=== PATIENT | female | born 1990 | race Caucasian/White ===

== ENCOUNTER 2020-07-05 10:53 | Inpatient (IN) | payer MEDICAID, SELFPAY ==
[2020-07-05] VITALS (9 sets, daily range): BP systolic 105–128; BP diastolic 67–89; PULSE 60–88; RESP 16–18; TEMP 36.5–37.1; O2SAT 96–100; BMI 19.2; BMI 19.1
--- NOTE | 2020-07-05 11:02 | ED.DCSUM_ITS ---
- ER Visit Summary Date of Service: 07/05/20 Chief Complaint: Requesting detox History of Present Illness: The patient is a 30 F presenting requesting detox from fentanyl. She states she has used fentanyl for the past 4 years. She uses approximately 2 g/day. She snorts fentanyl, she does not inject. She uses alcohol approximately 3 shots of whiskey per day. She has never been in alcohol withdrawal. She denies other drug use. She denies fever. Denies other complaints. Physical Examination: Vitals are stable. Patient is afebrile. Alert no acute distress. HEENT exam is unremarkable. Neck is supple. Lungs are clear and equal bilaterally. Heart is regular rate and rhythm. Abdomen is soft nontender nondistended. Extremities are unremarkable. Skin is warm and dry. No focal neurologic deficit. Remainder of exam is unremarkable. Emergency Department Course and Treatment: hCG negative. Chemistries unremarkable. Alcohol negative. Tox positive for methamphetamine and cannabinoids. Patient now admits to methamphetamine use 2 weeks ago. She also states she used cocaine 1 week ago. Will discuss with the hospitalist for admission. Disposition: Admission Impression: Opiate dependence This note was generated with [employer] dictation software. It may contain incorrect words, spelling, and punctuation that were not noted in review of the chart prior to signing ED Disposition - Plan for ED Patient: Referrals: Dileep ELMORE [Other]
[2020-07-05 11:35] LABS: Amphetamine Urine VISTA NEGATIVE (<1000 ng/mL); Barbiturate Urine VISTA NEGATIVE (< 200 ng/mL); Benzodiazepine Urine VISTA NEGATIVE (< 200 ng/mL); Cocaine Urine VISTA NEGATIVE (< 300 ng/mL); Ecstacy Urine VISTA POSITIVE (< 500 ng/mL); Methadone Urine VISTA NEGATIVE (< 300 ng/mL); PCP Urine VISTA NEGATIVE (< 25 ng/mL); THC Urine VISTA POSITIVE (< 50 ng/mL); Vista UDS pH Range 5
[2020-07-05 11:41] LABS: Internal QC Validated? YES +Cl - CLEAR BKGD; Pregnancy, Serum, hCG Quali. NEGATIVE Negative
[2020-07-05 11:47] LABS: AST(SGOT) 15 U/L (15-37); Alanine Aminotransfer ALT/SGPT 15 U/L (13-56); Albumin, Serum 3.7 g/dL (3.2-5.0); Alkaline Phosphatase 68 U/L (45-117); Anion Gap 3 (5-15); BUN 8 mg/dL (7-18); BUN/Creat Ratio 11.3 RATIO (10-20); Calcium,Total 9.1 mg/dL (8.5-10.1); Chloride 105 mmol/L (98-107); Creatinine, Serum 0.71 mg/dL (0.55-1.02); EST Glomerular Filtration Rate 102 mL/min (>60); Est Glom Filt Rate - Afr Amer 123 mL/min (>60); Estimated Creatinine Clearance 92.07 ml/min; Globulin 3.6 g/dL (2.2-4.2); Glucose 90 mg/dL (74-106); Protein, Total 7.3 g/dL (6.4-8.2); Sodium Level 140 mmol/L (136-145)
[2020-07-05 11:49] LABS: Alcohol, Blood (Medical)-Serum < 3.0 mg/dL
--- NOTE | 2020-07-05 12:12 | PCM.HP.STD ---
Problem List (1) Acute opioid withdrawal Status: Acute (2) Polysubstance dependence including opioid drug with daily use Status: Acute (3) Alcohol use disorder Status: Acute (4) Chronic hepatitis Status: Chronic History of Present Illness Date of Admission: 07/05/20 Chief Complaint: Acute opioid withdrawal The patient is a 30 year old F with past medical history of seizure disorder, chronic hepatitis C, polysubstance use, who comes in requesting for medical stabilization. Patient uses about 2 g of fentanyl every day. Last used fentanyl 10 PM the day before admission. She drinks 3 shots to 2 pints of hard liquor every day. She last drank yesterday afternoon. She comes in requesting for medical stabilization. She has been too many detox programs. She has mild aches but no much of any symptoms. Vitals show temperature of 7.8F, heart rate 85, blood pressure 128/89, respiration rate 18, SPO2 100% on room air. BMP of is unremarkable. Urine tox shows positive for cannabinoids, and methamphetamines. Past Medical History Past Medical History (Chronic Problems): Chronic Problems Chronic hepatitis (Chronic) Allergies No Known Allergies Allergy (Verified 07/05/20 10:56) Home Medications: Ambulatory Orders Medication Instructions Recorded Levetiracetam [Keppra] 1,500 mg PO BID 07/05/20 Surgical History: no surgical history Psychiatric History: No pertinent psych hx CART PUSHER History: No pertinent CART PUSHER history Lives: Friends Smoking Status: Current every day smoker Tobacco Use: Cigarettes Alcohol: Heavy Drugs: Cocaine, Marijuana, - - fentanyl Review of Systems Constitutional: Reports: Fatigue. Denies: Anorexia, Chills, Fever, Night Sweats, Malaise, Weakness, Weight Change Eyes: Denies: Blurred vision, Cataracts, Conjunctivae Inflammation, Pain, Redness, Vision Change HEENT: Denies: Difficulty Hearing, Difficulty Swallowing, Head Aches, Hearing Changes, Sinus Congestion, Sinus Drainage, Sore Throat Cardiovascular: Denies: Chest Pain, Orthopnea, Palpitations, Paroxysmal Noc. Dyspnea Respiratory: Denies: Cough, Hemoptysis, Shortness of breath at rest, Shortness of breath upon exertion, Sputum production Gastrointestinal: Denies: Abdominal Pain, Nausea, Vomiting Genitourinary: Denies: Dysuria Musculoskeletal: Denies: Joint Pain, Joint stiffness, Joint swelling, Joint Tenderness Skin: Denies: Rash, Wounds Neurological: Denies: Difficulty swallowing, Focal weakness, Numbness, Tingling Psychiatric: Denies: Anxiety, Depression, Homicidal Ideations, Suicidal Ideations Hematologic/ Lymphatic: Denies: Easy Bruising, Easy Bleeding VTE Information - Inpt Only VTE Present on Admission: No VTE Pharm Prophylaxis ordered?: Yes Patient Problems: Active and Suspected Problems Acute opioid withdrawal (Acute) Polysubstance dependence including opioid drug with daily use (Acute) Alcohol use disorder (Acute) - Physical Exam Vitals/I&O's: Vital Signs Temp Pulse Resp BP Pulse Ox 97.8 F 85 18 128/89 H 100 07/05/20 10:54 07/05/20 10:54 07/05/20 10:54 07/05/20 10:54 07/05/20 10:54 Oxygen Delivery Method Room Air Weight: 50.802 kg Body Mass Index (BMI) 19.2 General: Alert, Oriented x3, Cooperative, No apparent distress HEENT: Atraumatic, PERRLA, EOMI, Normocephalic Oral: Moist Mucosa Neck: Supple Lungs: Clear to auscultation, Normal air movement Cardiovascular: Regular rate, Regular Rhythm, Normal S2, No murmurs Abdomen: Bowel Sounds Present, Soft, Non Tender, Non-Distended, No Hepato-splenomegaly Extremities: No edema Skin: No rashes Musculoskeletal: No Tenderness to Palpation of Joints or Extremities Lymphatic: No Cervical, Supraclavicular, or Inguinal Adenopathy Neurological: Cranial nerves II-XII grossly intact, Neuro grossly intact Psych/Mental Status: Normal Affect, Appropriate Laboratory Results 07/05/20 11:10: Urine Opiates Screen NEGATIVE, Urine Methadone Screen NEGATIVE, Ur Barbiturates Screen NEGATIVE, Ur Phencyclidine Scrn NEGATIVE, Ur Amphetamines Screen NEGATIVE, U Methamphetamin-MDMA POSITIVE H, U Benzodiazepines Scrn NEGATIVE, Urine Cocaine Screen NEGATIVE, U Cannabinoids Screen POSITIVE H, Ur Drug Screen Comment 07/05/20 11:22: Sodium 140, Potassium 4.0, Chloride 105, Carbon Dioxide 32.0, Anion Gap 3 L, BUN 8, Creatinine 0.71, Estim Creat Clear Calc 92.07, Est GFR (MDRD) Af Amer 123, Est GFR (MDRD) Non-Af 102, BUN/Creatinine Ratio 11.3, Glucose 90, Calcium 9.1, Total Bilirubin 0.10 L, AST 15, ALT 15, Alkaline Phosphatase 68, Total Protein 7.3, Albumin 3.7, Globulin 3.6, Albumin/Globulin Ratio 1.0 07/05/20 11:22: Ethyl Alcohol < 3.0 07/05/20 11:22: Serum , Qual NEGATIVE Assessment/Plan All Active Problems Acute opioid withdrawal (Acute) Polysubstance dependence including opioid drug with daily use (Acute) Alcohol use disorder (Acute) 1. Acute opioid withdrawal in a patient with chronic fentanyl use Continue buprenorphine protocol 2. Chronic alcohol use disorder, would anticipate alcohol withdrawal since patient drinks heavily Will put on withdrawal protocol Monitor for alcohol withdrawal seizures and also excessive sedation 3. Polysubstance use, advised to quit 4. Nicotine dependence, on replacement 5. Seizure disorder, continue on Keppra, seizure precautions 6. DVT prophylaxis-early mobilization Inpatient E&M: 19741 Init Hosp L3
--- NOTE | 2020-07-05 12:14 | NURSING ---
MED SURG OPIATE DEPENDENCE PAINTSIL
[2020-07-05] MEDS: Phenobarbital 32.4 MG Tablet PO ×3 (14:36→22:38)
[2020-07-05] MEDS: levETIRAcetam 750 MG Tablet 1500 MG PO (22:38)
[2020-07-06 01:37] VITALS: BP 110/71; PULSE 56; RESP 16; TEMP 36.5; O2SAT 96
[2020-07-06] MEDS: Phenobarbital 32.4 MG Tablet PO ×6 (02:55→22:29)
[2020-07-06 06:00] VITALS: BP 114/80; PULSE 65; RESP 16; TEMP 36.9; O2SAT 97
[2020-07-06] MEDS: 0.9% Saline Lock 10 ML Syringe IV (06:30)
--- NOTE | 2020-07-06 07:18 | PCM.PN.HOSP ---
Patient Problems: Active and Suspected Problems Acute opioid withdrawal (Acute) Polysubstance dependence including opioid drug with daily use (Acute) Alcohol use disorder (Acute) Reason for Visit: Follow-up on acute alcohol and opioid withdrawal Subjective: Patient was seen and examined. She denied any new complains. No acute events. No seizures seen Objective: Physical exam: General: Alert, Oriented x3, Cooperative, No apparent distress HEENT: Atraumatic, PERRLA, EOMI, Normocephalic Oral: Moist Mucosa Neck: Supple Lungs: Clear to auscultation, Normal air movement Cardiovascular: Regular rate, Regular Rhythm, Normal S2, No murmurs Abdomen: Bowel Sounds Present, Soft, Non Tender, Non-Distended, No Hepato-splenomegaly Extremities: No edema Skin: No rashes Musculoskeletal: No Tenderness to Palpation of Joints or Extremities Lymphatic: No Cervical, Supraclavicular, or Inguinal Adenopathy Neurological: Cranial nerves II-XII grossly intact, Neuro grossly intact Psych/Mental Status: Normal Affect, Appropriate Vitals/I&O's: Vital Signs Temp Pulse Resp BP Pulse Ox 98.5 F 65 16 114/80 97 07/06/20 06:00 07/06/20 06:00 07/06/20 06:00 07/06/20 06:00 07/06/20 06:00 Oxygen Delivery Method Room Air Weight: 50.802 kg Body Mass Index (BMI) 19.1 Intake and Output for Last 24 Hours 07/04/20 07/05/20 07/06/20 23:59 23:59 23:59 Intake Total 150 / 150 200 / 200 Balance 150 / 150 200 / 200 Laboratory Results 07/05/20 11:10: Urine Opiates Screen NEGATIVE, Urine Methadone Screen NEGATIVE, Ur Barbiturates Screen NEGATIVE, Ur Phencyclidine Scrn NEGATIVE, Ur Amphetamines Screen NEGATIVE, U Methamphetamin-MDMA POSITIVE H, U Benzodiazepines Scrn NEGATIVE, Urine Cocaine Screen NEGATIVE, U Cannabinoids Screen POSITIVE H, Ur Drug Screen Comment 07/05/20 11:22: Sodium 140, Potassium 4.0, Chloride 105, Carbon Dioxide 32.0, Anion Gap 3 L, BUN 8, Creatinine 0.71, Estim Creat Clear Calc 92.07, Est GFR (MDRD) Af Amer 123, Est GFR (MDRD) Non-Af 102, BUN/Creatinine Ratio 11.3, Glucose 90, Calcium 9.1, Total Bilirubin 0.10 L, AST 15, ALT 15, Alkaline Phosphatase 68, Total Protein 7.3, Albumin 3.7, Globulin 3.6, Albumin/Globulin Ratio 1.0 07/05/20 11:22: Ethyl Alcohol < 3.0 07/05/20 11:22: Serum , Qual NEGATIVE Current Medications Buprenorphine HCl (Buprenorphine Hcl) 0 mg SL Q8H [facility]; Taper Stop: 07/08/20 12:14 Clonidine (Catapres) 0.1 mg PO Q8H PRN PRN PRN Reason: RESTLESSNESS Dicyclomine HCl (Bentyl) 20 mg PO Q6H PRN PRN PRN Reason: Abdominal Discomfort Folic Acid (Folic Acid) 1 mg PO DAILY@0800 [facility] Gabapentin (Neurontin) 300 mg PO Q8H PRN PRN PRN Reason: moderate to severe anxiety Hydroxyzine Pamoate (Vistaril Pamoate Capsule) 50 mg PO Q6H PRN PRN PRN Reason: mild anxiety Levetiracetam (Keppra Tablet) 1,500 mg PO BID [facility] Last Admin: 07/05/20 22:38 Dose: 1,500 mg Documented by: Loperamide HCl (Imodium) 2 mg PO Q4H PRN PRN PRN Reason: LOOSE STOOLS Methocarbamol (Methocarbamol) 1,500 mg PO Q6H PRN PRN PRN Reason: MUSCLE SPASM Nicotine (Nicoderm Cq (Pbkc)) 21 mg TRANSDERM. DAILY [facility] Nicotine Polacrilex (Rugby Nicotine (Pbkc)) 4 mg PO Q2H PRN PRN PRN Reason: Nicotine Craving Ondansetron HCl (Zofran) 8 mg PO Q8H PRN PRN PRN Reason: NAUSEA Phenobarbital (Phenobarbital) 97.2 mg PO Q4H [facility]; Taper Stop: 07/09/20 21:59 Last Admin: 07/06/20 06:29 Dose: 97.2 mg Documented by: Sodium Chloride () 10 - 40 ml IV UD PRN PRN Reason: SALINE FLUSH Last Admin: 07/06/20 06:30 Dose: 10 ml Documented by: Thiamine HCl (Vitamin B1) 100 mg PO DAILYCM [facility] Trazodone HCl (Desyrel) 100 mg PO QHS PRN PRN PRN Reason: INSOMNIA STROKE Vital Signs/Narrative: Vital Signs Temp Pulse Resp BP Pulse Ox 07/06/20 06:00 98.5 F 65 16 114/80 97 Medical Necessity - Tobacco Use Smoking Status: Heavy Smoker (>10/day) Tobacco Use: Cigarettes Assessment/Plan All Active Problems Acute opioid withdrawal (Acute) Polysubstance dependence including opioid drug with daily use (Acute) Alcohol use disorder (Acute) 1. Acute opioid withdrawal in a patient with chronic fentanyl use Continue buprenorphine protocol 2. Chronic alcohol use disorder, would anticipate alcohol withdrawal since patient drinks heavily Continue on withdrawal protocol Monitor for alcohol withdrawal seizures and also excessive sedation 3. Polysubstance use, advised to quit 4. Nicotine dependence, on replacement 5. Seizure disorder, continue on Keppra, seizure precautions 6. DVT prophylaxis-early mobilization Inpatient E&M: 46994 Subs Hosp L2
[2020-07-06 07:22] VITALS: BP 103/63; PULSE 71; RESP 16; TEMP 37; O2SAT 95
[2020-07-06] MEDS: Thiamine Hydrochloride 100 MG Tablet PO (07:31)
[2020-07-06] MEDS: Folic Acid 1 MG Tablet PO (07:31)
[2020-07-06] MEDS: levETIRAcetam 750 MG Tablet 1500 MG PO ×2 (10:33→22:28)
[2020-07-06 13:40] VITALS: BP 92/53; PULSE 73; RESP 16; TEMP 36.9; O2SAT 97
--- NOTE | 2020-07-06 14:13 | CHAPLAIN ---
Type of Pastoral Visit _x__ Initial Visit ___ Follow-up Visit ___ On-call Visit ___ General Patient Visit ___ Spiritual Assessment ___ Family Conference ___ Bereavement ___ Rapid Response ___ Code Blue ___ Other (describe below) Pastoral Care Referral From _x__ Patient ___ Family ___ Nurse ___ Physician ___ Career Guidance Counselor ___ Medical Collections ___ Other (describe below) Sacrament/Intervention ___ Active listening ___ Anointing ___ Yarsani ___ Bereavement ___ Communion ___ Yris exploration ___ ___ Life review ___ Prayer ___ Reconciliation ___ Sacrament of Sick _x__ Supportive presence ___ Wedding ___ Other (describe below) Pastoral Comments offer of support to patient while RN is in the room; pt is welcoming but indicates she is tired and may not be talkative; pt states she has very little support system and I've tried recovery before, but hope it can work this time; offer of future support given
--- NOTE | 2020-07-06 14:19 | ADDICTION ---
This feature writer met with patient in her room to plan discharge. Patient stated that she is unsure if she wants follow up care post discharge from [facility]. She stated that she will wait until discharge to plan for discharge. This feature writer encouraged patient to consider Residential treatment upon discharge and provided education re:direct [facility]. Patient declined referral again. This feature writer will attempt to meet with patient tomorrow prior to her discharge.
[2020-07-06] MEDS: Gabapentin 300 MG Capsule PO (18:39)
[2020-07-06] MEDS: Dicyclomine 10 MG Capsule 20 MG PO (18:39)
[2020-07-06 22:19] VITALS: BP 115/77; PULSE 60; RESP 16; TEMP 36.8; O2SAT 98
[2020-07-06] MEDS: Buprenorphine HCl 2 MG TAB.SUBL SL (22:29)
[2020-07-07] MEDS: Phenobarbital 32.4 MG Tablet PO ×6 (02:19→22:01)
[2020-07-07] MEDS: Gabapentin 300 MG Capsule PO ×3 (02:25→22:05)
[2020-07-07] MEDS: Dicyclomine 10 MG Capsule 20 MG PO ×2 (02:25→09:03)
[2020-07-07] MEDS: cloNIDine HCl 0.1 MG Tablet PO ×2 (02:25→11:40)
[2020-07-07] MEDS: Methocarbamol 750 MG Tablet 1500 MG PO ×3 (02:25→18:05)
[2020-07-07 02:30] VITALS: BP 114/76; PULSE 72; RESP 17; TEMP 37.1; O2SAT 97
[2020-07-07] MEDS: hydrOXYzine PAM 25 MG Capsule 50 MG PO ×3 (05:37→18:05)
[2020-07-07] MEDS: Buprenorphine HCl 2 MG TAB.SUBL SL ×3 (05:37→22:43)
[2020-07-07 08:50] VITALS: BP 100/44; PULSE 86; RESP 16; TEMP 36.5; O2SAT 98
[2020-07-07] MEDS: Ondansetron 8 MG Tablet PO (09:02)
[2020-07-07] MEDS: Folic Acid 1 MG Tablet PO (09:02)
[2020-07-07] MEDS: Thiamine Hydrochloride 100 MG Tablet PO (09:02)
[2020-07-07] MEDS: levETIRAcetam 750 MG Tablet 1500 MG PO ×2 (09:02→22:01)
--- NOTE | 2020-07-07 09:27 | ADDICTION ---
This technical report writer met with patient in her room to discuss discharge planning. Patient was alert and orietned x4 and presented with agitated mood and congruent affect. She stated that she is not feeling well and questioned why am I even here. Patient stated that she wants to leave medical withdrawal management. This technical report writer encouraged patient to complete the program. This technical report writer offered coordination of care for discharge, patient declined. Patient states that she wants to get a hold of Tommy to see if she can live with him and do outpatient services in [place]. This technical report writer offered to provide a list of treatment agencies in [place], patient declined. This technical report writer informed patient's nurse that patient wants to use telephone to call Tommy to arrange for housing and transport. Nurse stated that she will be permitted to use the phone on Sunday when she plans to discharge. This technical report writer will follow up with patient at next visit.
[2020-07-07] MEDS: Ibuprofen 600 MG Tablet PO ×2 (11:39→22:15)
--- NOTE | 2020-07-07 13:20 | PCM.PN.HOSP ---
Patient Problems: Active and Suspected Problems Acute opioid withdrawal (Acute) Polysubstance dependence including opioid drug with daily use (Acute) Alcohol use disorder (Acute) Reason for Visit: Acute alcohol and opioid withdrawal Objective: Patient stated she had a seizure before admission but not during hospital stay. She drinks 2 pints of whiskey every day along with opioids. Physical exam General: Confused, disoriented, lethargic. HEENT: Atraumatic, PERRLA, EOMI, Normocephalic Oral: No Gingival or Mucosal Lesions/ Ulcerations Neck: Supple, No JVD, Negative Carotid Bruits Lungs: Air entry diminished in bilateral lung bases. No crepitation/rhonchi Cardiovascular: Regular rate, Regular Rhythm, Normal S1, Normal S2, No murmurs Abdomen: Bowel Sounds Present, Soft, Non Tender, Non-Distended : No renal angle tenderness. No suprapubic tenderness. Extremities: No edema, Capillary Refill Less than 3 Seconds. Mild tremors of hands. Skin: No rashes, No breakdown Musculoskeletal: No Tenderness to Palpation of Joints or Extremities Neurological: Cranial nerves II-XII grossly intact, Deep Tendon Reflexes 2+/4 and Symmetrical, Neuro grossly intact Psych/Mental Status: Normal Affect, Appropriate. Vitals/I&O's: Vital Signs Temp Pulse Resp BP Pulse Ox 97.7 F L 86 16 100/44 L 98 07/07/20 08:50 07/07/20 08:50 07/07/20 08:50 07/07/20 08:50 07/07/20 08:50 Oxygen Delivery Method Room Air Weight: 112 lb Body Mass Index (BMI) 19.1 Intake and Output for Last 24 Hours 07/05/20 07/06/20 07/07/20 23:59 23:59 23:59 Intake Total 150 / 150 200 / 500 800 / 800 Balance 150 / 150 200 / 500 800 / 800 Current Medications Acetaminophen (Tylenol) 500 mg PO Q4H PRN PRN PRN Reason: Temp > 100.4 F Al Hydroxide/Mg Hydroxide (Mylanta Ii) 30 ml PO Q6H PRN PRN PRN Reason: dyspesia Bisacodyl (Dulcolax) 10 mg RECTAL DAILY PRN PRN PRN Reason: Constipation Buprenorphine HCl (Buprenorphine Hcl) 4 mg SL Q8H [facility]; Taper Stop: 07/09/20 22:14 Last Admin: 07/07/20 05:37 Dose: 4 mg Documented by: Clonidine (Catapres) 0.1 mg PO Q8H PRN PRN PRN Reason: RESTLESSNESS Last Admin: 07/07/20 11:40 Dose: 0.1 mg Documented by: Dicyclomine HCl (Bentyl) 20 mg PO Q6H PRN PRN PRN Reason: Abdominal Discomfort Last Admin: 07/07/20 09:03 Dose: 20 mg Documented by: Folic Acid (Folic Acid) 1 mg PO DAILY@0800 [facility] Last Admin: 07/07/20 09:02 Dose: 1 mg Documented by: Gabapentin (Neurontin) 300 mg PO Q8H PRN PRN PRN Reason: moderate to severe anxiety Last Admin: 07/07/20 11:39 Dose: 300 mg Documented by: Hydroxyzine Pamoate (Vistaril Pamoate Capsule) 50 mg PO Q6H PRN PRN PRN Reason: mild anxiety Last Admin: 07/07/20 11:39 Dose: 50 mg Documented by: Ibuprofen (Motrin) 600 mg PO Q8H PRN PRN PRN Reason: Pain Score 1-10/10 Last Admin: 07/07/20 11:39 Dose: 600 mg Documented by: Levetiracetam (Keppra Tablet) 1,500 mg PO BID [facility] Last Admin: 07/07/20 09:02 Dose: 1,500 mg Documented by: Loperamide HCl (Imodium) 2 mg PO Q4H PRN PRN PRN Reason: LOOSE STOOLS Methocarbamol (Methocarbamol) 1,500 mg PO Q6H PRN PRN PRN Reason: MUSCLE SPASM Last Admin: 07/07/20 09:03 Dose: 1,500 mg Documented by: Nicotine (Nicoderm Cq (Pbkc)) 21 mg TRANSDERM. DAILY [facility] Last Admin: 07/07/20 08:54 Dose: Not Given Documented by: Nicotine Polacrilex (Rugby Nicotine (Pbkc)) 4 mg PO Q2H PRN PRN PRN Reason: Nicotine Craving Ondansetron HCl (Zofran) 8 mg PO Q8H PRN PRN PRN Reason: NAUSEA Last Admin: 07/07/20 09:02 Dose: 8 mg Documented by: Phenobarbital (Phenobarbital) 64.8 mg PO Q4H [facility]; Taper Stop: 07/09/20 21:59 Last Admin: 07/07/20 10:13 Dose: 64.8 mg Documented by: Senna (Senokot) 2 tablet PO QHS PRN PRN PRN Reason: Constipation Sodium Chloride () 10 - 40 ml IV UD PRN PRN Reason: SALINE FLUSH Last Admin: 07/06/20 06:30 Dose: 10 ml Documented by: Thiamine HCl (Vitamin B1) 100 mg PO DAILYCM [facility] Last Admin: 07/07/20 09:02 Dose: 100 mg Documented by: Trazodone HCl (Desyrel) 100 mg PO QHS PRN PRN PRN Reason: INSOMNIA Medical Necessity - Tobacco Use Smoking Status: Heavy Smoker (>10/day) Tobacco Use: Cigarettes Assessment/Plan All Active Problems Acute opioid withdrawal (Acute) Polysubstance dependence including opioid drug with daily use (Acute) Alcohol use disorder (Acute) 1. Acute opioid withdrawal with chronic fentanyl use, dependence and tolerance Continue buprenorphine protocol with other supportive medications. U tox positive of methamphetamine and cannabinoids. 2. Acute alcohol withdrawal with chronic alcohol use disorder, dependence and tolerance Continue on withdrawal protocol Monitor for alcohol withdrawal seizures and also excessive sedation 3. Polysubstance use, catalytic case operator consult and referral to 180. 4. Cigarette smoking and nicotine dependence: Nicotine dependence, on replacement 5. Seizure disorder, continue on Keppra, seizure precautions 6. DVT prophylaxis-early mobilization Inpatient E&M: 42526 [facility] Hosp L2
[2020-07-07 14:50] VITALS: BP 90/67; PULSE 76; RESP 16; TEMP 36.8; O2SAT 96
[2020-07-07 18:00] VITALS: BP 100/65; PULSE 67; RESP 16; TEMP 36.9; O2SAT 96
[2020-07-07 20:30] VITALS: BP 100/56; PULSE 70; RESP 16; TEMP 36.8; O2SAT 99
[2020-07-07] MEDS: traZODone 100 MG Tablet PO (22:05)
[2020-07-07 22:06] VITALS: BP 97/64; PULSE 70; RESP 18; TEMP 36.8; O2SAT 98
[2020-07-08] MEDS: hydrOXYzine PAM 25 MG Capsule 50 MG PO ×3 (00:26→16:32)
[2020-07-08 02:00] VITALS: BP 98/67; PULSE 75; RESP 16; TEMP 36.6; O2SAT 98
[2020-07-08] MEDS: Phenobarbital 32.4 MG Tablet PO ×4 (04:02→22:13)
[2020-07-08] MEDS: Methocarbamol 750 MG Tablet 1500 MG PO ×2 (06:01→20:26)
[2020-07-08] MEDS: Buprenorphine HCl 2 MG TAB.SUBL SL ×3 (06:01→22:14)
[2020-07-08 06:05] VITALS: BP 98/62; PULSE 72; RESP 16; TEMP 36.2; O2SAT 97
[2020-07-08 08:45] VITALS: BP 107/70; PULSE 84; RESP 16; TEMP 36.5; O2SAT 96
[2020-07-08] MEDS: cloNIDine HCl 0.1 MG Tablet PO ×2 (08:49→16:48)
[2020-07-08] MEDS: Gabapentin 300 MG Capsule PO ×2 (08:49→20:26)
[2020-07-08] MEDS: Ibuprofen 600 MG Tablet PO (08:49)
[2020-07-08] MEDS: Folic Acid 1 MG Tablet PO (08:50)
[2020-07-08] MEDS: Thiamine Hydrochloride 100 MG Tablet PO (08:51)
[2020-07-08] MEDS: levETIRAcetam 750 MG Tablet 1500 MG PO ×2 (08:51→22:14)
--- NOTE | 2020-07-08 11:20 | PN_ITS ---
Patient Problems: Active and Suspected Problems Acute opioid withdrawal (Acute) Polysubstance dependence including opioid drug with daily use (Acute) Alcohol use disorder (Acute) Reason for Visit: Acute opioid withdrawal symptoms Objective: Patient is awake, alert oriented x3. She still has restlessness and anxiety. Heart rate and blood pressure control. Physical exam General: Alert, Oriented x3, Cooperative HEENT: Atraumatic, PERRLA, EOMI, Normocephalic Oral: No Gingival or Mucosal Lesions/ Ulcerations Neck: Supple, No JVD, Negative Carotid Bruits Lungs: Air entry equal in bilateral lung bases. No crepitation/rhonchi Cardiovascular: Regular rate, Regular Rhythm, Normal S1, Normal S2, No murmurs Abdomen: Bowel Sounds Present, Soft, Non Tender, Non-Distended : No renal angle tenderness. No suprapubic tenderness. Extremities: No edema, Capillary Refill Less than 3 Seconds Skin: Needleless: On both arms and forearms. No breakdown Musculoskeletal: No Tenderness to Palpation of Joints or Extremities Neurological: Cranial nerves II-XII grossly intact, Deep Tendon Reflexes 2+/4 and Symmetrical, Neuro grossly intact Psych/Mental Status: Normal Affect, Appropriate. Vitals/I&O's: Vital Signs Temp Pulse Resp BP Pulse Ox 97.7 F L 84 16 107/70 96 07/08/20 08:45 07/08/20 08:45 07/08/20 08:45 07/08/20 08:45 07/08/20 08:45 Oxygen Delivery Method Room Air Weight: 112 lb Body Mass Index (BMI) 19.1 Intake and Output for Last 24 Hours 07/06/20 07/07/20 07/08/20 23:59 23:59 23:59 Intake Total 200 / 500 920 / 920 Balance 200 / 500 920 / 920 Current Medications Acetaminophen (Tylenol) 500 mg PO Q4H PRN PRN PRN Reason: Temp > 100.4 F Al Hydroxide/Mg Hydroxide (Mylanta Ii) 30 ml PO Q6H PRN PRN PRN Reason: dyspesia Bisacodyl (Dulcolax) 10 mg RECTAL DAILY PRN PRN PRN Reason: Constipation Buprenorphine HCl (Buprenorphine Hcl) 2 mg SL Q8H [facility]; Taper Stop: 07/09/20 22:14 Last Admin: 07/08/20 06:01 Dose: 2 mg Documented by: Clonidine (Catapres) 0.1 mg PO Q8H PRN PRN PRN Reason: RESTLESSNESS Last Admin: 07/08/20 08:49 Dose: 0.1 mg Documented by: Dicyclomine HCl (Bentyl) 20 mg PO Q6H PRN PRN PRN Reason: Abdominal Discomfort Last Admin: 07/07/20 09:03 Dose: 20 mg Documented by: Folic Acid (Folic Acid) 1 mg PO DAILY@0800 [facility] Last Admin: 07/08/20 08:50 Dose: 1 mg Documented by: Gabapentin (Neurontin) 300 mg PO Q8H PRN PRN PRN Reason: moderate to severe anxiety Last Admin: 07/08/20 08:49 Dose: 300 mg Documented by: Hydroxyzine Pamoate (Vistaril Pamoate Capsule) 50 mg PO Q6H PRN PRN PRN Reason: mild anxiety Last Admin: 07/08/20 08:49 Dose: 50 mg Documented by: Ibuprofen (Motrin) 600 mg PO Q8H PRN PRN PRN Reason: Pain Score 1-10/10 Last Admin: 07/08/20 08:49 Dose: 600 mg Documented by: Levetiracetam (Keppra Tablet) 1,500 mg PO BID [facility] Last Admin: 07/08/20 08:51 Dose: 1,500 mg Documented by: Loperamide HCl (Imodium) 2 mg PO Q4H PRN PRN PRN Reason: LOOSE STOOLS Methocarbamol (Methocarbamol) 1,500 mg PO Q6H PRN PRN PRN Reason: MUSCLE SPASM Last Admin: 07/08/20 06:01 Dose: 1,500 mg Documented by: Nicotine (Nicoderm Cq (kc)) 21 mg TRANSDERM. DAILY [facility] Last Admin: 07/08/20 08:53 Dose: 21 mg Documented by: Nicotine Polacrilex (Rugby Nicotine (Pbkc)) 4 mg PO Q2H PRN PRN PRN Reason: Nicotine Craving Ondansetron HCl (Zofran) 8 mg PO Q8H PRN PRN PRN Reason: NAUSEA Last Admin: 07/07/20 09:02 Dose: 8 mg Documented by: Phenobarbital (Phenobarbital) 64.8 mg PO Q6H [facility]; Taper Stop: 07/09/20 21:59 Last Admin: 07/08/20 10:17 Dose: 64.8 mg Documented by: Senna (Senokot) 2 tablet PO QHS PRN PRN PRN Reason: Constipation Sodium Chloride () 10 - 40 ml IV UD PRN PRN Reason: SALINE FLUSH Last Admin: 07/06/20 06:30 Dose: 10 ml Documented by: Thiamine HCl (Vitamin B1) 100 mg PO DAILYCM [facility] Last Admin: 07/08/20 08:51 Dose: 100 mg Documented by: Trazodone HCl (Desyrel) 100 mg PO QHS PRN PRN PRN Reason: INSOMNIA Last Admin: 07/07/20 22:05 Dose: 100 mg Documented by: STROKE Vital Signs/Narrative: Vital Signs Temp Pulse Resp BP Pulse Ox 07/08/20 08:45 97.7 F L 84 16 107/70 96 Medical Necessity - Tobacco Use Smoking Status: Heavy Smoker (>10/day) Tobacco Use: Cigarettes Assessment/Plan All Active Problems Acute opioid withdrawal (Acute) Polysubstance dependence including opioid drug with daily use (Acute) Alcohol use disorder (Acute) 1. Acute opioid withdrawal with chronic fentanyl use, dependence and tolerance Continue buprenorphine protocol with other supportive medications. U tox positive of methamphetamine and cannabinoids. 07/08: Withdrawal syndrome is better controlled today. 2. Acute alcohol withdrawal with chronic alcohol use disorder, dependence and tolerance Continue on withdrawal protocol. Patient on thiamine, folic acid and B12. Monitor for alcohol withdrawal seizures and also excessive sedation 07/10: Denies hallucination, seizure. 3. Polysubstance use, protective services case worker consult and referral to [facility]. 4. Cigarette smoking and nicotine dependence: Nicotine dependence, on replacement 5. Seizure disorder, continue on Keppra, seizure precautions 6. DVT prophylaxis-early mobilization Inpatient E&M: 86882 Subs Hosp L2
[2020-07-08 14:10] VITALS: BP 97/63; PULSE 75; RESP 16; TEMP 36.6; O2SAT 98
--- NOTE | 2020-07-08 15:28 | ADDICTION ---
This machine sign writer met with patient in her room to continue to process discharge planning. This machine sign writer assisted patient in calling [facility] in [place], [place] to set up a MAT appointment. That agency stated that they will call [facility] in order to coordinate admission into their program. This machine sign writer also assisted patient in calling for transportation. Transportation will be calling [facility] to confirm that she has transportation and housing upon d/c from [facility]. Patient refused all other discharge planning.
--- NOTE | 2020-07-08 16:05 | CASEMGMT ---
Social Work Note SW updated that Misael called in to [facility] and relayed the message that pt is able to stay with Tommy at discharge. Tommy # [phone]. RADHA placed a call to Smia at [facility] and updated her on this. Katherine Lanza [employer]
[2020-07-08 16:30] VITALS: BP 105/65; PULSE 76; RESP 16; O2SAT 98
[2020-07-08 20:10] VITALS: BP 104/67; PULSE 64; RESP 18; TEMP 36.3; O2SAT 100
[2020-07-08] MEDS: traZODone 100 MG Tablet PO (22:14)
[2020-07-09 01:14] VITALS: BP 100/59; PULSE 63; RESP 16; TEMP 36.4; O2SAT 97
[2020-07-09] MEDS: cloNIDine HCl 0.1 MG Tablet PO ×2 (01:19→09:21)
[2020-07-09 03:43] VITALS: BP 95/50; PULSE 63; RESP 18; TEMP 36.6; O2SAT 96
[2020-07-09] MEDS: Phenobarbital 32.4 MG Tablet PO ×2 (03:48→09:14)
--- NOTE | 2020-07-09 08:00 | PCM.DC ---
- Discharge Diagnoses Current Active Problems: Current Active and Chronic Problems Acute opioid withdrawal (Acute) Polysubstance dependence including opioid drug with daily use (Acute) Alcohol use disorder (Acute) Chronic hepatitis (Chronic) You will use the following diet at home:: Regular Your food should be the consistency of: Regular Discharge Activity: May Not Drive Weight Bearing Status: Weight bearing as tolerated Call your doctor if you observe: Fever of 101 or Higher, Coldness, Increased Pain, Change in Color, Inability to have a bowel movement, Using more than one pad per hour, Dizziness, Chest pain, Prolonged hiccoughing, Increased palpitations (irregular heartbeat), Calf discomfort, Uncontrolled pain Allergies/Adverse Reactions: Allergies No Known Allergies Allergy (Verified 07/05/20 10:56) Medications to take at Discharge Levetiracetam [Keppra] 1,500 mg PO BID 07/05/20 Folic Acid 1 mg PO DAILY@0800 tab 07/09/20 Nicotine Polacrilex [Nicotine Gum] 4 mg PO Q2H PRN PRN #0 gum 07/09/20 Nicotine [Nicoderm Cq] 21 mg TRANSDERM. DAILY #30 patch 07/09/20 Thiamine Hydrochloride [Vitamin B1] 100 mg PO DAILYCM #30 tab 07/09/20 The following prescriptions were given: Nicotine [Nicoderm Cq] 21 mg TRANSDERM. DAILY #30 patch Transmission Status: Sent to [address] Thiamine Hydrochloride [Vitamin B1] 100 mg PO DAILYCM #30 tab Transmission Status: Sent to [address] Primary Care Physician: Dileep ELMORE [Other] Please follow up with your Primary Care Physician in: in 1-2 weeks Test Results: Test results from this visit will be discussed in further detail at your follow-up appointment, if applicable. Please Follow Up With: Vani Noel DO When: in 1-2 weeks for opoid withdrawal syndrome
--- NOTE | 2020-07-09 08:01 | DS.PCM_ITS ---
Discharge Date and Diagnosis Date of Admission: 07/05/20 Date of Discharge: 07/09/20 - Primary Discharge Diagnosis Acute Problems: Active Problems Acute opioid withdrawal (Acute) Polysubstance dependence including opioid drug with daily use (Acute) Alcohol use disorder (Acute) - Secondary Discharge Diagnosis Chronic Problems: Chronic Problems Chronic hepatitis (Chronic) Hospital Course and Treatment Summary of Care Provided: The patient is 30-year-old female with history of chronic opioid use, fentanyl and dependence was admitted with acute opioid withdrawal. Patient symptoms were controlled on buprenorphine protocol. U tox positive methamphetamine and cannabinoids. Patient also uses alcohol and had acute alcohol withdrawal syndrome on admission. Patient did not had seizure or hallucinations. Patient has history of seizure and is on Keppra 1500 mg p.o. twice daily. Patient also history of nicotine use and dependence. Discharge medication reconciliation done. Discharge follow-up instructions completed. Discharge process discussed with the patient and all questions were answered to patient's satisfaction. Patient is discharged home. Patient is being discharged on folic acid, thiamine and nicotine patch. Total time spent, exact 35 minutes on discharge meds reconciliation, examination, coordination of care with nurses and ancillary staff, review of imaging and blood test and discussion with the patient on follow-up instructions Objective: Seen and examined. Patient withdrawal symptoms are controlled. Ready for discharge. Patient request for outpatient buprenorphine turned down. Physical exam General: Alert, Oriented x3, Cooperative HEENT: Atraumatic, PERRLA, EOMI, Normocephalic Oral: No Gingival or Mucosal Lesions/ Ulcerations Neck: Supple, No JVD, Negative Carotid Bruits Lungs: Air entry equal in bilateral lung bases. No crepitation/rhonchi Cardiovascular: Regular rate, Regular Rhythm, Normal S1, Normal S2, No murmurs Abdomen: Bowel Sounds Present, Soft, Non Tender, Non-Distended : No renal angle tenderness. No suprapubic tenderness. Extremities: No edema, Capillary Refill Less than 3 Seconds Skin: No rashes, No breakdown Musculoskeletal: No Tenderness to Palpation of Joints or Extremities Neurological: Cranial nerves II-XII grossly intact, Deep Tendon Reflexes 2+/4 and Symmetrical, Neuro grossly intact Psych/Mental Status: Normal Affect, Appropriate. - Physical Exam Vitals/I&O's: Vital Signs Temp Pulse Resp BP Pulse Ox 98 F 63 18 95/50 L 96 07/09/20 03:43 07/09/20 03:43 07/09/20 03:43 07/09/20 03:43 07/09/20 03:43 Oxygen Delivery Method Room Air Weight: 112 lb Body Mass Index (BMI) 19.1 Intake and Output for Last 24 Hours 07/07/20 07/08/20 07/09/20 23:59 23:59 23:59 Intake Total 920 / 920 850 / 1650 1600 / 1600 Balance 920 / 920 850 / 1650 1600 / 1600 Current Medications Acetaminophen (Tylenol) 500 mg PO Q4H PRN PRN PRN Reason: Temp > 100.4 F Al Hydroxide/Mg Hydroxide (Mylanta Ii) 30 ml PO Q6H PRN PRN PRN Reason: dyspesia Bisacodyl (Dulcolax) 10 mg RECTAL DAILY PRN PRN PRN Reason: Constipation Buprenorphine HCl (Buprenorphine Hcl) 2 mg SL Q12H [facility]; Taper Stop: 07/09/20 22:14 Last Admin: 07/08/20 22:14 Dose: 2 mg Documented by: Clonidine (Catapres) 0.1 mg PO Q8H PRN PRN PRN Reason: RESTLESSNESS Last Admin: 07/09/20 01:19 Dose: 0.1 mg Documented by: Dicyclomine HCl (Bentyl) 20 mg PO Q6H PRN PRN PRN Reason: Abdominal Discomfort Last Admin: 07/07/20 09:03 Dose: 20 mg Documented by: Folic Acid (Folic Acid) 1 mg PO DAILY@0800 [facility] Last Admin: 07/08/20 08:50 Dose: 1 mg Documented by: Gabapentin (Neurontin) 300 mg PO Q8H PRN PRN PRN Reason: moderate to severe anxiety Last Admin: 07/08/20 20:26 Dose: 300 mg Documented by: Hydroxyzine Pamoate (Vistaril Pamoate Capsule) 50 mg PO Q6H PRN PRN PRN Reason: mild anxiety Last Admin: 07/08/20 16:32 Dose: 50 mg Documented by: Ibuprofen (Motrin) 600 mg PO Q8H PRN PRN PRN Reason: Pain Score 1-10 Last Admin: 07/08/20 08:49 Dose: 600 mg Documented by: Levetiracetam (Keppra Tablet) 1,500 mg PO BID [facility] Last Admin: 07/08/20 22:14 Dose: 1,500 mg Documented by: Loperamide HCl (Imodium) 2 mg PO Q4H PRN PRN PRN Reason: LOOSE STOOLS Methocarbamol (Methocarbamol) 1,500 mg PO Q6H PRN PRN PRN Reason: MUSCLE SPASM Last Admin: 07/08/20 20:26 Dose: 1,500 mg Documented by: Nicotine (Nicoderm Cq ([facility])) 21 mg TRANSDERM. DAILY [facility] Last Admin: 07/08/20 08:53 Dose: 21 mg Documented by: Nicotine Polacrilex (Rugby Nicotine ([facility])) 4 mg PO Q2H PRN PRN PRN Reason: Nicotine Craving Last Admin: 07/08/20 14:09 Dose: 4 mg Documented by: Ondansetron HCl (Zofran) 8 mg PO Q8H PRN PRN PRN Reason: NAUSEA Last Admin: 07/07/20 09:02 Dose: 8 mg Documented by: Phenobarbital (Phenobarbital) 32.4 mg PO Q6H [facility]; Taper Stop: 07/09/20 21:59 Last Admin: 07/09/20 03:48 Dose: 32.4 mg Documented by: Senna (Senokot) 2 tablet PO QHS PRN PRN PRN Reason: Constipation Sodium Chloride () 10 - 40 ml IV UD PRN PRN Reason: SALINE FLUSH Last Admin: 07/06/20 06:30 Dose: 10 ml Documented by: Thiamine HCl ([facility]itamin [facility]) [facility] Last Admin: 07/08/20 08:51 Dose: 100 mg Documented by: Trazodone HCl (Desyrel) 100 mg PO QHS PRN PRN PRN Reason: INSOMNIA Last Admin: 07/08/20 22:14 Dose: 100 mg Documented by: Discharge Activity: May Not Drive Weight Bearing Status: Weight bearing as tolerated Call your doctor if you observe: Fever of 101 or Higher, Coldness, Increased Pain, Change in Color, Inability to have a bowel movement, Using more than one pad per hour, Dizziness, Chest pain, Prolonged hiccoughing, Increased palpitations (irregular heartbeat), Calf discomfort, Uncontrolled pain Home Medications: Medications to take at Discharge Levetiracetam [Keppra] 1,500 mg PO BID 07/05/20 Folic Acid 1 mg PO DAILY@0800 tab 07/09/20 Nicotine Polacrilex [Nicotine Gum] 4 mg PO Q2H PRN PRN #0 gum 07/09/20 Nicotine [Nicoderm Cq] 21 mg TRANSDERM. DAILY #30 patch 07/09/20 Thiamine Hydrochloride [Vitamin B1] 100 mg PO DAILYCM #30 tab 07/09/20 Following Prescriptions Were Given to Patient: Nicotine [Nicoderm Cq] 21 mg TRANSDERM. DAILY #30 patch Transmission Status: Received by [address] Thiamine Hydrochloride [Vitamin B1] 100 mg PO DAILYCM #30 tab Transmission Status: Received by [address] Primary Care Physician: Dileep ELMORE [Other] Please follow up with your Primary Care Physician in: in 1-2 weeks Please Follow Up With: Vani Noel DO When: in 1-2 weeks for opoid withdrawal syndrome Medical Necessity - Tobacco Use Smoking Status: Heavy Smoker (>10/day) Tobacco Use: Cigarettes Meaningful Use Info Meaningful Use Diagnoses (Choose all that apply): None applicable Inpatient E&M: 22243 Disch Hosp
--- NOTE | 2020-07-09 09:00 | ADDICTION ---
This tag writer met with patient in her room to finalize discharge plan as she will discharge this morning. Patient reported that she has an appointment scheduled with [facility] on 07/13/2020. This tag writer asked charge nurse to communicate this with physician in hopes of having a prescription for BUP written to cover her until her appointment with [facility]. Charge nurse reported that the doctor said no to prescribing BUP to this patient post discharge. Patient was encouraged by this tag writer and [facility] staff to present at [facility] for the MAT program until she is able to see the physician at [facility] on Sunday for this prescription. Patient reports that she understands this but is not happy with the outcome. She reported that her boyfriend will be picking her up at 9:45 am this morning and will provide transportation home.
[2020-07-09] MEDS: levETIRAcetam 750 MG Tablet 1500 MG PO (09:13)
[2020-07-09] MEDS: Thiamine Hydrochloride 100 MG Tablet PO (09:13)
[2020-07-09] MEDS: Folic Acid 1 MG Tablet PO (09:13)
[2020-07-09] MEDS: Buprenorphine HCl 2 MG TAB.SUBL SL (09:14)
[2020-07-09] MEDS: hydrOXYzine PAM 25 MG Capsule 50 MG PO (09:14)
[2020-07-09] MEDS: Gabapentin 300 MG Capsule PO (09:14)
[2020-07-09 09:55] VITALS: BP 102/69; PULSE 68; RESP 16; TEMP 36.6; O2SAT 100
[2020-07-09 10:00] VITALS: PULSE 60
--- NOTE | 2020-07-09 10:53 | PHA.DC.MR ---
Pharmacy Service has performed discharge medication reconciliation for this patient. The patient's discharge medication list was reviewed for discrepancies and discrepancies were resolved. Home Medications Levetiracetam [Keppra] 1,500 mg PO BID 07/05/20 Folic Acid 1 mg PO DAILY@0800 tab 07/09/20 Nicotine Polacrilex [Nicotine Gum] 4 mg PO Q2H PRN PRN #0 gum 07/09/20 Nicotine [Nicoderm Cq] 21 mg TRANSDERM. DAILY #30 patch 07/09/20 Thiamine Hydrochloride [Vitamin B1] 100 mg PO DAILYCM #30 tab 07/09/20
== END 2020-07-09 11:20 | disposition home or self-care (01) | DRG 773 ==
LOC: ED 12:23 → MS3 12:25
PROVIDERS: Admitting Provider Internal Medicine; Emergency Provider Emergency Medicine; Visit Provider Internal Medicine
DX: F11.23 Opioid dependence with withdrawal (principal); F10.239 Alcohol dependence with withdrawal, unspecified; B18.2 Chronic viral hepatitis C; F12.90 Cannabis use, unspecified, uncomplicated; F14.90 Cocaine use, unspecified, uncomplicated; F15.90 Other stimulant use, unspecified, uncomplicated; G40.909 Epilepsy, unspecified, not intractable, without status epilepticus; Z79.899 Other long term (current) drug therapy; F17.210 Nicotine dependence, cigarettes, uncomplicated
CPT/HCPCS: 80053; 80307; 80320; 84703; 99283; 99406; A4216; G0480